=== PATIENT | female | born 1995 | race Caucasian/White ===

== ENCOUNTER 2024-10-22 13:31 | Emergency (ER) | payer OTHER ==
--- NOTE | 2024-10-22 15:52 | RAD REPORT ---
EXAM:OB Limited CLINICAL HISTORY: with abdominal pain TECHNIQUE: Limited OB ultrasound performed FINDINGS: Single live intrauterine in cephalic presentation. Cervix 4 cm. Placenta posterior. No subchorionic/retroplacental. Normal amniotic fluid. Cardiac activity 134 bpm. Femur length 2.7 cm. Estimated gestational age 18 weeks 2 days. The right and left adnexa unremarkable. IMPRESSION: Single live intrauterine in cephalic presentation No significant abnormality on this limited exam. If a survey is desired it can be performed on a nonemergent basis.
[2024-10-22 16:04] LABS: Absolute Lymphocytes (CBC) 1.1 K/uL (0.7-4.9); Absolute Monocytes 0.2 K/uL (0.1-1.3); Basophils % 0.2 % (0-1.3); Eosinophils % 0.1 % (0-4.4); Hematocrit 36.8 % (36.0-45.0); Hemoglobin 12.7 g/dL (12.0-15.0); Lymphocytes % 7.6 % (15.3-44.8); MCH 28.3 pg (27.0-35.0); MCHC 34.4 g/dL (32.0-36.0); MCV 82.3 fL (80-100); MPV 8.8 fL (7.6-11.3); Monocytes % 1.3 % (3.3-12.3); Neutrophils % 90.8 % (41.7-73.7); Platelets 314 thou/uL (152-406); RBC Red Blood Cell Count 4.48 M/uL (3.86-4.86); Red Cell Distribution Width 14.3 % (12.1-15.2)
[2024-10-22 16:24] LABS: ALT/SGPT 27 U/L (13-56); AST/SGOT 14 U/L (15-37); Albumin 3.2 g/dL (3.4-5.0); Albumin/Globulin Ratio 0.7 (1.1-1.8); Alkaline Phosphatase 106 U/L (45-117); Anion Gap 10.6 mEq/L (5.0-15.0); BUN Blood Urea Nitrogen 8 mg/dL (7-18); Bicarbonate 25 mEq/L (21-32); Bilirubin Total 0.4 mg/dL (0.2-1.0); Globulin 4.6 g/dL (2.3-3.5); Glomerular Filtration Rate 125 ml/min (=/>90); Glucose Level 119 mg/dL (74-106); Magnesium 1.9 mg/dL (1.6-2.4); Potassium 3.6 mEq/L (3.5-5.1); Protein, Total 7.8 g/dL (6.4-8.2); Sodium Level 134 mEq/L (136-145)
[2024-10-22 16:27] LABS: Bilirubin Direct < 0.2 mg/dL (0-0.2); Bilirubin Indirect, Calculated 0.2 mg/dL (0.2-0.8); Troponin High Sensitivity < 3.0 pg/mL (<58.9)
[2024-10-22] MEDS ORDERED: NA CHLORIDE 0.9% 1,000 ML ONE (17:34)
[2024-10-22 17:35] LABS: Specific Gravity 1.016 (1.005-1.030); Sqamous Epithelial <5 /HPF (None Seen); Urine Bacteria <20 /HPF (<20); Urine Bilirubin NEGATIVE (Negative); Urine Blood Negative (Negative); Urine Clarity Extremely Turbid (Clear); Urine Color Yellow (Yellow); Urine Culture Reflex Order REFLEXED; Urine Glucose NEGATIVE (Negative); Urine Ketones 2+ (Negative); Urine Microscopic Reflex YN ORDER UMIC; Urine Mucus 3+ /HPF (None Seen); Urine Nitrite NEGATIVE (Negative); Urine Protein TRACE (Negative); Urine RBC <5 /HPF (None Seen); Urine Urobilinogen Normal (Normal); Urine WBC Clump Rare /HPF (None Seen); Urine Yeast (Budding) Trace /HPF (None Seen)
--- NOTE | 2024-10-22 17:49 | ER ---
Nurse's Notes [facility] Name: Sam Desai Age: 29 yrs Sex: Female : 1995 Arrival Date: 10/22/2024 Time: 13:31 Bed 11 Private MD: Diagnosis: syncope;Volume depletion, unspecified Presentation: 10/22 13:56 Chief complaint: Patient states: grocery shopping and suddenly became dizzy, sweaty, me1 pale and lips were blue before LOC. This happened 3 times. Vomited 6 times. Typically just vomiting in the morning with morning sickness. Denies injury from falls. c/o BUNDY 7/10 and feeling shaky. 20 weeks . Coronavirus screen: At this time, the client does not indicate any symptoms associated with coronavirus-19. Ebola Screen: No symptoms or risks identified at this time. Initial Sepsis Screen: Does the patient meet any 2 criteria? No. Patient's initial sepsis screen is negative. Does the patient have a suspected source of infection? No. Patient's initial sepsis screen is negative. Risk Assessment: Do you want to hurt yourself or someone else? Patient reports no desire to harm self or others. Onset of symptoms was October 22, 2024 at 12:00. 13:56 Method Of Arrival: Wheelchair me1 13:56 Acuity: JOANNE 3 me1 Triage Assessment: 14:00 General: Appears in no apparent distress. well groomed, well developed, well nourished, me1 Behavior is calm, cooperative, appropriate for age. Pain: Complains of pain in head Pain does not radiate. Pain currently is 7 out of 10 on a pain scale. Quality of pain is described as aching, Pain began gradually, Is continuous. EENT: No signs and/or symptoms were reported regarding the EENT system. Neuro: Level of Consciousness is awake, alert, obeys commands, Oriented to person, place, time, situation, Appropriate for age Reports dizziness, headache a syncopal episode. Cardiovascular: Patient's skin is warm and dry. Respiratory: Airway is patent Respiratory effort is even, unlabored, Respiratory pattern is regular, symmetrical. GI: Reports vomiting, 6 times today. : No signs and/or symptoms were reported regarding the genitourinary system. Derm: Skin is intact, is healthy with good turgor, Skin is pink, warm \T\ dry. Musculoskeletal: No signs and/or symptoms reported regarding the musculoskeletal system. 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 - Infectious Disease History:: Denies. - Social history:: Smoking status: Patient denies any tobacco usage or history of. Screenin:00 [facility] ED Fall Risk Assessment (Adult) History of falling in the last 3 months, jb4 including since admission No falls in past 3 months (0 pts) Confusion or Disorientation No (0 pts) Intoxicated or Sedated No (0 pts) Impaired Gait No (0 pts) Mobility Assist Device Used No (0 pt) Altered Elimination No (0 pt) Score/Fall Risk Level 0 - 2 = Low Risk Oriented to surroundings, Maintained a safe environment. Abuse screen: Denies threats or abuse. Nutritional screening: No deficits noted. Tuberculosis screening: No symptoms or risk factors identified. Assessment: 15:45 General: Appears in no apparent distress. comfortable, Behavior is calm, cooperative, jb4 appropriate for age. Pain: Denies pain. Neuro: Level of Consciousness is awake, alert, obeys commands, Oriented to person, place, time, situation, Core Machine Operator are equal bilaterally Moves all extremities. Full function Gait is steady, Speech is normal, Denies weakness dizziness. Cardiovascular: Patient's skin is warm and dry. Respiratory: Airway is patent Respiratory effort is even, unlabored, Respiratory pattern is regular, symmetrical. GI: Abdomen is round non-distended. Derm: Skin is intact, Skin temperature is warm. Musculoskeletal: Circulation, motion, and sensation intact. Range of motion: intact in all extremities. 17:00 Reassessment: Patient appears in no apparent distress at this time. Patient and/or jb4 family updated on plan of care and expected duration. Pain level reassessed. Patient is alert, oriented x 3, equal unlabored respirations, skin warm/dry/pink. 17:49 Reassessment: D/c pending completion of IV fluids. jb4 Vital Signs: 13:56 BP 118 / 68; Pulse 76; Resp 18; Temp 97.8; Pulse Ox 100% ; Weight 97.52 kg; Height 5 me1 ft. 3 in. ; Pain 7/10; 17:30 BP 100 / 71 LA Supine (auto/lg); Pulse 77; Resp 16; Pulse Ox 100% on R/A; jb4 17:31 BP 108 / 86 LA Sitting (auto/lg); Pulse 88; Resp 16; Pulse Ox 98% on R/A; jb4 17:32 BP 113 / 67 LA Standing (auto/lg); Pulse 91; Resp 16; Pulse Ox 99% on R/A; jb4 13:56 Body Mass Index 38.09 (97.52 kg, 160.02 cm) me1 13:56 Pain Scale: Adult nh1 ED Course: 13:32 Patient arrived in ED. ra3 13:40 Brielle Manning FNP-C is PHCP. kb 13:40 Christopher Austin MD is Attending Physician. kb 14:00 Triage completed. me1 14:00 Arm band placed on Patient placed in waiting room. me1 15:19 US OB Limited In Process Unspecified. EDMS 16:03 Inserted saline lock: 20 gauge in right antecubital area, using aseptic technique. jb4 ,using aseptic technique. started by GOLD Parsons tech. 16:04 Troponin High Sensitivity Sent. jb4 16:04 Magnesium Sent. jb4 16:04 Hepatic Function Sent. jb4 16:04 CBC with Diff Sent. jb4 16:05 Basic Metabolic Panel Sent. jb4 17:00 Patient has correct armband on for positive identification. Bed in low position. Call jb4 light in reach. Side rails up X 1. Provided Education on: plan of care. 17:45 Andreas Rubio, RN is Primary Nurse. jb4 18:38 No provider procedures requiring assistance completed. IV discontinued, intact, jb4 bleeding controlled, No redness/swelling at site. Pressure dressing applied. Administered Medications: 17:41 Drug: NS 0.9% IV 1000 ml IV at 1000 ml once; to be given as a bolus over 60 minutes jb4 Route: IV; Rate: 1000 ml; Site: right antecubital; 18:38 Follow up: Response: No adverse reaction; IV Status: Completed infusion; IV Intake: jb4 1000ml Medication: 17:00 VIS not applicable for this client. jb4 Intake: 18:38 IV: 1000ml; Total: 1000ml. jb4 Outcome: 17:49 Discharge ordered by MD. narayanan 18:38 Discharged to home ambulatory, jb4 18:38 Condition: stable 18:38 Discharge instructions given to patient, Instructed on discharge instructions, follow up and referral plans. Demonstrated understanding of instructions, follow-up care, 18:38 Patient left the ED. jb4 Signatures: Dispatcher [employer] EDBrielle Varner, MESFIN-Briseida TOURE-Andreas Lovell, RN RN jb4 Nimco Beck, ANA RN me1 Duyen Mena ra3 Corrections: (The following items were deleted from the chart) 14:05 13:56 Chief complaint: Patient states: grocery shopping and suddenly became dizzy, me1 sweaty, pale and lips were blue before LOC. This happened 3 times. Vomited 6 times. Typically just vomiting in the morning with morning sickness. Denies injury from falls. c/o BUNDY 7/10 and feeling shaky me1
--- NOTE | 2024-10-22 17:49 | EDPHYS ---
Physician Documentation [facility] Name: Sam Desai Age: 29 yrs Sex: Female : 1995 Arrival Date: 10/22/2024 Time: 13:31 Bed 11 Private MD: ED Physician Christopher Austin HPI: 10/22 16:10 This 29 yrs old Female presents to ER via Wheelchair with complaints of Passed Out kb Prior To Arrival - 20wks preg, Vomiting. 16:10 Pt is a 29 year old female who presents for syncope. States she was walking in [facility] and had 3 syncopal episodes. Spouse states he caught her each time and she immediately woke up and said she was fine after each episode. States she had 3 episodes of vomiting. Pt drank an electrolyte drink on the way here and is feeling better. States she came in to make sure everything was ok with her because she is 20 weeks . 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 - Infectious Disease History:: Denies. - Social history:: Smoking status: Patient denies any tobacco usage or history of. ROS: 16:10 Constitutional: As per HPI kb Exam: 15:41 Constitutional: This is a well developed, well nourished patient who is awake, alert, kb and in no acute distress. Head/Face: Normocephalic, atraumatic. ENT: Moist Mucous membranes Cardiovascular: Regular rate Respiratory: Respirations even and unlabored. No increased work of breathing. Talking in full sentences Abdomen/GI: Soft, non-tender. No distention Skin: Warm, dry with normal turgor. Normal color. MS/ Extremity: Pulses equal, no cyanosis. Neurovascular intact. Full, normal range of motion. Neuro: Awake and alert, GCS 15, oriented to person, place, time, and situation. 15:41 ECG was reviewed by the Attending Physician. Vital Signs: 13:56 BP 118 / 68; Pulse 76; Resp 18; Temp 97.8; Pulse Ox 100% ; Weight 97.52 kg; Height 5 me1 ft. 3 in. ; Pain 7/10; 17:30 BP 100 / 71 LA Supine (auto/lg); Pulse 77; Resp 16; Pulse Ox 100% on R/A; jb4 17:31 BP 108 / 86 LA Sitting (auto/lg); Pulse 88; Resp 16; Pulse Ox 98% on R/A; jb4 17:32 BP 113 / 67 LA Standing (auto/lg); Pulse 91; Resp 16; Pulse Ox 99% on R/A; jb4 13:56 Body Mass Index 38.09 (97.52 kg, 160.02 cm) me1 13:56 Pain Scale: Adult me1 MDM: 13:40 Medical Screening Exam initiated kb 17:47 Data reviewed: vital signs, nurses notes. kb 17:47 Differential Diagnosis: cardiac arrhythmia, idiopathic syncope, , vasovagal kb episode. Test considered but Not performed: CT: ct head considered but pt has no neuro deficits. Historians other than the Patient: Spouse/Significant Other: spouse. Counseling: I had a detailed discussion with the patient and/or guardian regarding the historical points, exam findings, and any diagnostic results supporting the discharge/admit diagnosis, lab results, radiology results, the need for outpatient follow up, an OB/Gyne specialist, to return to the emergency department if symptoms worsen or persist or if there are any questions or concerns that arise at home. 17:48 ED course: Pt will follow up with OB tomorrow. kb 10/22 14:08 Order name: Basic Metabolic Panel; Complete Time: 16:28 kb 10/22 14:08 Order name: CBC with Diff; Complete Time: 16:05 kb 10/22 14:08 Order name: Hepatic Function; Complete Time: 16:28 kb 10/22 14:08 Order name: Magnesium; Complete Time: 16:28 kb 10/22 14:08 Order name: Troponin High Sensitivity; Complete Time: 16:28 kb 10/22 14:08 Order name: Urinalysis w/ reflexes; Complete Time: 17:46 kb 10/22 14:21 Order name: Glucose, Ancillary Testing; Complete Time: 14:24 EDMS 10/22 17:38 Order name: Urine Culture EDWV 10/22 14:08 Order name: US OB Limited; Complete Time: 15:56 kb 10/22 14:08 Order name: Cardiac monitoring; Complete Time: 16:04 kb 10/22 14:08 Order name: EKG - Nurse/Tech; Complete Time: 16:04 kb 10/22 14:08 Order name: IV Saline Lock; Complete Time: 16:04 kb 10/22 14:08 Order name: Labs collected and sent; Complete Time: 16:04 kb 10/22 14:08 Order name: O2 Per Protocol; Complete Time: 16:04 kb 10/22 14:08 Order name: O2 Sat Monitoring; Complete Time: 16:04 kb 10/22 14:08 Order name: Orthostatics; Complete Time: 17:32 kb EC:41 Rate is 81 beats/min. Rhythm is regular. QRS Dupuyer is Normal. WA interval is normal at kb 148 msec. QRS interval is normal at 76 msec. QT interval is normal at 446 msec. Administered Medications: 17:41 Drug: NS 0.9% IV 1000 ml IV at 1000 ml once; to be given as a bolus over 60 minutes jb4 Route: IV; Rate: 1000 ml; Site: right antecubital; 18:38 Follow up: Response: No adverse reaction; IV Status: Completed infusion; IV Intake: jb4 1000ml Disposition Summary: 10/22/24 17:49 Discharge Ordered Notes: Location: Home kb Condition: Stable kb Diagnosis - syncope kb - Volume depletion, unspecified kb Followup: kb - With: Emergency Department - When: As needed - Reason: Worsening of condition Followup: kb - With: Private Physician - When: 2 - 3 days - Reason: Recheck today's complaints, Continuance of care, Re-evaluation by your physician Discharge Instructions: - Discharge Summary Sheet kb - Syncope, [id number] kb - Dehydration, Adult, [id number] kb Forms: - Medication Reconciliation Form kb - Antibiotic Education kb - Prescription Opioid Use kb - Patient Portal Instructions kb - Leadership Thank You Letter kb Signatures: Dispatcher [employer] Brielle Mckeon FNP-C FNP-Andreas Lovell, RN RN jb4 Nimco Beck, ANA RN me1 Corrections: (The following items were deleted from the chart) 14:09 14:09 BASIC METABOLIC PANEL+C.LAB.BRZ ordered. EDMS EDMS 14:09 14:09 CBC+H.LAB.BRZ ordered. EDMS EDMS 14: 14:09 HEPATIC FUNCTION+C.LAB.BRZ ordered. EDMS EDMS 14: 14:09 MAGNESIUM+C.LAB.BRZ ordered. EDMS EDMS 14: 14:09 Troponin High Sensitivity+C.LAB.BRZ ordered. EDMS EDMS 14: 14:09 Urinalysis+U.LAB.BRZ ordered. EDMS EDMS 14: 14:09 OB Limited+US.RAD.BRZ ordered. EDMS EDMS 16:04 14:08 NPO ordered. kb jb4
[2024-10-22 18:55] VITALS: TEMP 97.8
[2024-10-22 19:10] VITALS: BP 113/67; O2SAT 99
== END 2024-10-22 18:38 | disposition home or self-care (01) ==
LOC: ER 13:31
DX: O26.892 Other specified pregnancy related conditions, second trimester (principal); E86.9 Volume depletion, unspecified; Z3A.20 20 weeks gestation of pregnancy
CPT/HCPCS: 93005; 87088; 85025; 81001; 87086; 80048; 36415; 83735; 82947; 80076; 84484; 76815; 96360; 99284; J7030